=== PATIENT | male | born 1995 | race Caucasian/White ===

== ENCOUNTER → 2018-03-27 | Outpatient (CLI) | payer SELFPAY | LOC: COL.RAD 09:10 | DX: K40.20 Bilateral inguinal hernia, without obstruction or gangrene, not specified as recurrent (principal) ==

== ENCOUNTER 2019-03-08 15:05 | Emergency (ER) | payer BC ==
[~2019-03-08] VITALS: Ht 190.5 cm; Wt 135.5 kg
[2019-03-08 15:07] VITALS: BP 144/99; TEMP 98.2
[2019-03-08 15:34] LABS: COLLECTION METHOD CLEAN CATCH
[2019-03-08 15:46] LABS: PH 7 (5-8); SQUAMOUS EPITHELIAL 0-2 /hpf; URINE APPEARANCE Clear; URINE BACTERIA None Seen /hpf; URINE BILIRUBIN Negative (NEGATIVE); URINE BLOOD Negative (NEGATIVE); URINE COLOR Yellow; URINE GLUCOSE Negative (NEGATIVE); URINE KETONE Negative (NEGATIVE); URINE LEUKOCYTE ESTERASE Negative (NEGATIVE); URINE NITRATE Negative (NEGATIVE); URINE PROTEIN(semi-quant) Negative (NEGATIVE); URINE RBC 0-2 /hpf; URINE UROBILINOGEN Negative (NEGATIVE)
[2019-03-08] MEDS ORDERED: LEVAQUIN 5500 MG/TA1 PO (18:49)
[2019-03-08 18:56] VITALS: PULSE 69
== END 2019-03-08 18:57 | disposition home or self-care (01) ==
LOC: COL.ER 15:05
PROVIDERS: Emergency Medicine
DX: N45.1 Epididymitis (principal)
CPT/HCPCS: J0696